=== PATIENT | male | born 1995 | race Two or more races ===

== ENCOUNTER 2016-06-24 17:13 | Emergency (ER) | payer MEDICAID, OTHER ==
[~2016-06-24] VITALS: Ht 188 cm; Wt 111.1 kg
[2016-06-24 17:25] VITALS: BP 128/77
== END 2016-06-24 22:11 | disposition home or self-care (01) ==
LOC: ER 17:24
DX: S61.011A Laceration without foreign body of right thumb without damage to nail, initial encounter (principal); J45.909 Unspecified asthma, uncomplicated; Z88.8 Allergy status to other drugs, medicaments and biological substances; W26.0XXA Contact with knife, initial encounter; Y93.89 Activity, other specified; Y99.8 Other external cause status; Y92.89 Other specified places as the place of occurrence of the external cause
CPT/HCPCS: 12001